=== PATIENT | female | born 1950 | race Caucasian/White ===

== ENCOUNTER → 2020-09-16 | Outpatient (CLI) | payer MEDICARE ==
--- NOTE | 2020-09-21 11:49 | MM ---
Reason for exam: screening (asymptomatic). Last mammogram was performed 5 years and 2 months ago. History: Patient is postmenopausal. Benign excisional biopsy of the right breast. Physical Findings: A clinical breast exam by your physician is recommended on an annual basis and results should be correlated with mammographic findings. MG 3D Screening Mammo W/Cad Bilateral CC and MLO view(s) were taken. Prior study comparison: July 16, 2015, bilateral MG screening mammo w CAD. There are scattered fibroglandular densities. Right anterior asymmetric density seems to have been present in 2015 but now is more defined with increased density. Benign oil cyst calcifications on the right. ASSESSMENT: Incomplete: need additional imaging evaluation, BI-RAD 0 RECOMMENDATION: Special view mammogram of the right breast. (3D) If lesion persists on supplemental views, image directed ultrasound is recommended. [facility] will attempt to contact patient to return for supplemental views and ultrasound if indicated.
== END | disposition home or self-care (01) ==
LOC: RADMAMWWP 08:17
PROVIDERS: ATTEND Internal Medicine
DX: Z12.31 Encounter for screening mammogram for malignant neoplasm of breast (principal)
CPT/HCPCS: 77063; 77067

== ENCOUNTER → 2020-09-25 | Outpatient (CLI) | payer MEDICARE ==
--- NOTE | 2020-09-25 11:43 | MM ---
Reason for exam: additional evaluation requested from abnormal screening. Last mammogram was performed less than 1 month ago. History: Patient is postmenopausal. Family history of breast cancer in maternal aunt at age 30. Benign excisional biopsy of the right breast, 1999. Physical Findings: Nurse Summary: 1cm nodule in the right breast at 12 o'clock and 3 o'clock (nurse mj). MG 3D Work Up W/Cad RT Spot compression CC, spot compression MLO, CCRL, and LM view(s) were taken of the right breast. Prior study comparison: September 16, 2020, bilateral MG 3d screening mammo w/cad. July 16, 2015, bilateral MG screening mammo w CAD. The breast tissue is heterogeneously dense. This may lower the sensitivity of mammography. Finding #1: There is a 10 mm spiculated mass located 3 cm from the nipple in the upper quadrant, anterior position of the right breast. Finding #2: There are typically benign dystrophic, round calcifications in the right breast. These results were verbally communicated with the patient and result sheet given to the patient on 09/25/20. ASSESSMENT: Incomplete: need additional imaging evaluation, BI-RAD 0 RECOMMENDATION: Ultrasound of the right breast. (mammographic lesions and palpables)
--- NOTE | 2020-09-25 11:44 | USB ---
Reason for exam: additional evaluation requested from abnormal screening. History: Patient is postmenopausal. Family history of breast cancer in maternal aunt at age 30. Benign excisional biopsy of the right breast, 1999. US Breast Workup Limited RT Right limited breast ultrasound including focal area of concern, retroareolar and axilla demonstrates no cystic or solid lesion seen. Ductal dilation noted. These results were verbally communicated with the patient and result sheet given to the patient on 09/25/20. ASSESSMENT: Probably benign, BI-RAD 3 RECOMMENDATION: Follow-up diagnostic mammogram of the right breast in 6 months.
== END | disposition home or self-care (01) ==
LOC: RADMAMWWP 09:25
PROVIDERS: ATTEND Internal Medicine
DX: R92.8 Other abnormal and inconclusive findings on diagnostic imaging of breast (principal)
CPT/HCPCS: 77065; 76642; G0279; 77061

== ENCOUNTER → 2020-12-11 | Outpatient (CLI) | payer MEDICARE ==
[2020-12-11 10:19] VITALS: BP 113/73; PULSE 68; RESP 18; TEMP 98.4
--- NOTE | 2020-12-11 11:13 | P.GSHP ---
History of Present Illness H&P Date: 12/11/20 Chief Complaint: abnormal right breast mammogram Mary is a 70 -year-old white female seen in consultation for Dr. Garza regarding the mammographic abnormality in the right breast. The patient had bilateral screening mammogram performed on [id number]. Special views of the right breast were recommended. These were performed on [id number], these revealed a spiculated area of concern in the right breast. An ultrasound was performed which did not reveal any specific lesions in this area. The case was reviewed with Dr. Hernandez from radiology who felt that the area of concern on the right breast mammogram should be sampled via stereotactic core biopsy. The patient d oes not have any new lumps masses or nodules in her breast. Although she states that the right breast has been nodular for many years. She did have a right breast biopsy approximately 40 years ago. The patient is not complaining of any nipple discharge or skin changes. She's not had any recent trauma or infection in the breast. Caffeine: none nicotine: Negative thro-bromine: none Family History: maternal aunt: cancer ? type Hormonal History: menarche: 12 , 1 miscarriage, breast fed: yes, first born at 22 menopause: hysterectomy late 40's, left ovaries, no cancer BCP: 6 years hormones: none Surgical history: bunion right foot Hysterectomy Right breast biopsy Bilateral cataracts surgery Medical History: glaucoma bladder incontinence Social history: Smoke: Negative Alcohol: Negative Drugs: Negative - Constitutional Constitutional: Denies chills, Denies fever - EENT Eyes: denies blurred vision, denies pain Ears: right: tinnitus, deny: decreased hearing Ears, nose, mouth and throat: Denies headache, Denies sore throat - Breasts Breasts: bilateral: as per HPI - Cardiovascular Cardiovascular: Denies chest pain, Denies shortness of breath - Respiratory Respiratory: Denies cough, Denies 7 - Gastrointestinal Comment: GERD - Genitourinary (Female) Genitourinary: Denies dysuria, Denies hematuria - Menstruation Menstruation: Reports post hysterectomy - Musculoskeletal Comment: arthritis, bilateral knee replacement - Neurological Neurological: Denies numbness, Denies weakness - Psychiatric Psychiatric: Denies anxiety, Denies depression - Endocrine Endocrine: Reports weight change, Denies fatigue - Hematologic/Lymphatic Comment: none - Allergic/Immunologic Allergic/Immunologic: Reports as per HPI, Reports seasonal allergies Past Medical History History of Any Multi-Drug Resistant Organisms: None Reported Smoking Status: Never smoker Medications and Allergies Home Medications Medication Instructions Recorded Confirmed Type Darifenacin Hydrobromide [Enablex] 15 mg PO DAILY 12/11/20 12/11/20 History Latanoprost/Pf [Latanoprost 0.005% 1 drop BOTH EYES HS 12/11/20 12/11/20 History Eye Drop] Multivit with Calcium,Iron,Min 1 each PO QAM 12/11/20 12/11/20 History [Women's Multivitamin] Barry-3 Fatty Acids/Fish Oil [Fish 1 each PO QAM 12/11/20 12/11/20 History Oil 1,000 mg Softgel] Allergies Allergy/AdvReac Type Severity Reaction Status Date / Time bee venom protein (honey bee) Allergy Swelling Unverified 12/11/20 10:20 Surgical - Exam Vital Signs Temp Pulse Resp BP Pulse Ox 98.4 F 68 18 113/73 94 L 12/11/20 10:17 12/11/20 10:17 12/11/20 10:17 12/11/20 10:17 12/11/20 10:17 BMI 26.6 - General well developed, well nourished, no distress - Eyes normal ocular movement - ENT normal pinna, no hearing loss - Neck trachea midline - Respiratory normal expansion, normal respiratory effort, clear to auscultation - Cardiovascular Rhythm: regular Heart Sounds: normal: S1, S2 - Abdomen Abdomen: soft, non tender, no guarding, no rigid, no rebound - Integumentary normal turgor - Neurologic no disoriented, no combative - Musculoskeletal normal gait - Psychiatric oriented to time, oriented to person, oriented to place, speech is normal, memory intact Breast Exam: BRA: 36DD inspection: grade 3 ptosis bilateral Palpation: Right breast: Multi-positional exam fibrocystic changes no dominant masses or nodules of concern, dark nevus inferior to the breast Right axilla: No adenopathy of concern Left breast: Multi-positional exam fibrocystic changes no dominant masses or nodules of concern Left axilla: No adenopathy of concern Results Mammogram and ultrasound reviewed with Dr. Hernandez Assessment and Plan Assessment: Impression: 1. Mammographic abnormality right breast approximately 3 cm from the nipple in the upper lower quadrant area, although this was not seen and ultrasound reviewed with Dr. Hernandez the recommendation was for a stereotactic core biopsy 2. Prior right breast biopsy 3. Fibrocystic breast changes Plan: 1. Zyrtec to core biopsy right breast Risk and benefits of procedure discussed with the patient as well as alternative she understands and wishes to proceed this will be scheduled in the near future Cc: Dr. Degroot encounter 45 minutes, > 50% of time in planning and counseling
== END | disposition home or self-care (01) ==
LOC: WWCWWP 09:51
PROVIDERS: ATTEND Surgery
DX: Z53.9 Procedure and treatment not carried out, unspecified reason (principal)

== ENCOUNTER → 2021-01-15 | Day surgery (SDC) | payer MEDICARE ==
--- NOTE | 2021-01-15 08:42 | P.PCN ---
Date of Procedure: 01/15/21 Preoperative Diagnosis: 10 mm mass 3 cm from the nipple in the upper quadrant anterior position of the right breast reported on mammogram of [id number] Postoperative Diagnosis: Same Procedure(s) Performed: Right breast stereotactic core biopsy Anesthesia: local Surgeon: Susie Gutierrez Pathology: other (Breast tissue) Condition: stable Disposition: same day Indications for Procedure: Mammographic abnormality of a mass in the right breast this was reviewed with Dr. Garza patient did have an ultrasound performed in the lesion was not well seen on ultrasound after reviewed with Dr. Garaz from radiology was felt that a stereo biopsy should be performed Operative Findings: Fibrofatty breast tissue Description of Procedure: The patient is a 70-year-old white female who on a mammogram was noted to have an area of nodularity approximately 3 cm from the nipple in the upper quadrant anterior position of the right breast. After review with radiology and review of ultrasound it was felt that a stereo biopsy should be performed. The risks and benefits of the procedure were discussed with the patient. She wished to proceed. Alternatives such as watchful waiting (biopsy were discussed but not recommended. The patient was taken to the stereotactic core biopsy room. She was positioned prone on the Lorad table. A CC from above approach was utilized. A Patricia was obtained in the area of concern was identified. The lesion was targeted. The breast was prepped using Betadine. 20 mL of 1% lidocaine were used to anesthetize the area of concern. A 9-gauge vacuum-assisted core rotating biopsy needle was driven to the correct coordinates. Prefire film was obtained. The needle was noted to be in the correct location of needle was fired in the post fire film was obtained. 12 core biopsies were obtained. A secure montse Top-bobbin marker was placed. This appeared to be in the correct location. Radiograph of the specimen was not performed as there were no calcifications. The patient tolerated the procedure in stable condition. The patient will follow with Dr. Fletcher in 1 week.
[2021-01-15 08:49] VITALS: BP 114/74; PULSE 56; RESP 16; TEMP 98.6
--- NOTE | 2021-01-15 15:04 | MM ---
EXAMINATION TYPE: MG stereo VAD BX RT DATE OF EXAM: 01/15/2021 COMPARISON: 09/25/2020 CLINICAL HISTORY: Abnormal mammogram TECHNIQUE: Stereotactic guided core biopsy of right breast. FINDINGS: Targeting was provided by radiology. Procedure was performed by surgery. Post procedure mammogram was obtained. Surgical core marker is in the expected region of the density targeted. IMPRESSION: 1. Successful stereotactic core biopsy right breast density Recommendations: 1. Recommendations are pending pathology results. Pathology Results: Benign RIGHT BREAST, CORE BIOPSY: Hypocellular collagenous stromal fibrosis with fibrocystic change and rare microcalcification. Negative for in situ or invasive carcinoma. Recommendation Follow up mammogram of the right breast in 6 months. MELODY
== END ==
LOC: RADMAMWWP 07:00
PROVIDERS: ATTEND Surgery
DX: N60.11 Diffuse cystic mastopathy of right breast (principal); R92.0 Mammographic microcalcification found on diagnostic imaging of breast; Z91.030 Bee allergy status
CPT/HCPCS: 88305; 19081; A4648; J2001

== ENCOUNTER → 2021-01-22 | Outpatient (CLI) | payer MEDICARE ==
--- NOTE | 2021-01-22 17:11 | P.PN ---
Subjective Progress Note Date: 01/22/21 Principal diagnosis: Stereotactic core biopsy results of right breast Mary is a 70-year-old white female who underwent a stereotactic core biopsy of area of concern in the right breast on . Pathology revealed hypocellular collagenous stromal fibrosis with fibrocystic change and rare microcalcifications. This was negative for in situ or invasive cancer. The patient original mammogram from which this was recommended was in August. Her studies have been reviewed with Dr. Garza and it is felt that a repeat right breast mammogram in 3 months is warranted as there is question whether the stereotactic core biopsy is concordant. The patient has minimal hematoma at the site. She did have a very uncomfortable procedure with pain during the procedure. At this time she has a small area of ecchymosis and small hematoma. Objective - Vital Signs Vital signs: Vital Signs Temp 98.2 F 01/22/21 16:31 Pulse 78 01/22/21 16:31 Resp 18 01/22/21 16:31 BP 137/76 01/22/21 16:31 Pulse Ox 98 01/22/21 16:31 Intake & Output 01/21/21 01/22/21 01/22/21 18:59 06:59 18:59 Weight 66.224 kg - Exam BMI 25.9 - Constitutional General appearance: Present: average body habitus - EENT Eyes: Present: EOMI ENT: Present: hearing grossly normal - Musculoskeletal Musculoskeletal: Present: gait normal - Psychiatric Psychiatric: Present: A&O x's 3, appropriate affect, intact judgment & insight - Additional findings Additional findings: biopsy site right breast clean and dry, mild echymosis, and small hematoma Assessment and Plan Assessment: Impression/Plan: Patient status post stereotactic core biopsy right breast pathology benign There is question as to whether the actual area of concern was sampled this was reviewed with radiology. The patient will have a repeat right breast mammogram in 3 months time this will be about 7 months from her mammogram in August and as per Dr. Garza he feels comfortable that this is adequate. The patient was given the option of needle local excisional biopsy versus repeat mammogram. It is felt that it is reasonable to wait and repeat the mammogram and she wishes to have this approach. CC: Dr Degroot
== END | disposition home or self-care (01) ==

== ENCOUNTER → 2021-04-16 | Outpatient (CLI) | payer MEDICARE ==
--- NOTE | 2021-04-19 11:26 | MM ---
Reason for exam: additional evaluation requested from abnormal screening. Last mammogram was performed 7 months ago. History: Patient is postmenopausal. Family history of breast cancer in maternal aunt at age 30. Benign MG stereo VAD BX RT of the right breast, January 15, 2021. Benign excisional biopsy of the right breast, 1999. Physical Findings: Nurse did not find any significant physical abnormalities on exam. MG 3D Diag Mammo W/Cad RT CC, MLO, and LM view(s) were taken of the right breast. Prior study comparison: September 25, 2020, right breast MG 3d work up w/cad RT. September 16, 2020, bilateral MG 3d screening mammo w/cad. The breast tissue is heterogeneously dense. This may lower the sensitivity of mammography. Previous mammotome biopsy in the right breast, appears within nodule, clip in nodule, probably benign. These results were verbally communicated with the patient and result sheet given to the patient on 04/16/21. ASSESSMENT: Probably benign, BI-RAD 3 RECOMMENDATION: Follow-up diagnostic mammogram of both breasts in 6 months.
== END | disposition home or self-care (01) ==
LOC: RADMAMWWP 12:52
PROVIDERS: ATTEND Surgery
DX: N63.10 Unspecified lump in the right breast, unspecified quadrant (principal); R92.8 Other abnormal and inconclusive findings on diagnostic imaging of breast; Z80.3 Family history of malignant neoplasm of breast; Z78.0 Asymptomatic menopausal state
CPT/HCPCS: 77065; G0279; 77061

== ENCOUNTER → 2022-12-08 | Outpatient (CLI) | payer MEDICARE ==
--- NOTE | 2022-12-10 16:25 | MM ---
Reason for Exam: Screening (asymptomatic). Last mammogram was performed 2 year(s) and 3 month(s) ago. Patient History: Menarche at age 12. First Full-Term at age 22. Hysterectomy at age 49. Postmenopausal. Patient has history of breast feeding. 1999, Benign Excisional Biopsy on the right side. 01/15/2021, Benign Core Biopsy on the right side. Maternal aunt had breast cancer, age 30. Risk Values: [place] 5 year model risk: 2.4%. NCI Lifetime model risk: 5.8%. Prior Study Comparison: 09/16/2020 Bilateral Screening Mammogram, [facility]. 09/25/2020 Right Diagnostic Mammogram, [facility]. 04/16/2021 Right Diagnostic Mammogram, [facility]. Tissue Density: There are scattered fibroglandular densities. Findings: Analyzed By CAD. Benign oil cyst and secretory calcifications on the right. Microclip anterior right breast from prior biopsy. No significant change from prior exams. Overall Assessment: Benign, BI-RAD 2 Management: Screening Mammogram of both breasts in 1 year. 1. Patient should continue monthly self breast exams. 2. A clinical breast exam by your physician is recommended on an annual basis. 3. This exam should not preclude additional follow-up of suspicious palpable abnormalities. Electronically signed and approved by: Tanner Hernandez M.D. Radiologist
== END | disposition home or self-care (01) ==
LOC: RADMAMWWP 13:54
PROVIDERS: ATTEND Family Medicine
DX: Z12.31 Encounter for screening mammogram for malignant neoplasm of breast (principal); Z78.0 Asymptomatic menopausal state; Z80.3 Family history of malignant neoplasm of breast; Z98.890 Other specified postprocedural states
CPT/HCPCS: 77063; 77067